=== PATIENT | male | born 1945 | race Caucasian/White ===

== ENCOUNTER → 2016-08-18 | Day surgery (SDC) | payer MEDICARE, BC ==
[~2016-08-18] VITALS: Ht 170.2 cm; Wt 104.4 kg
[~2016-08-18] MED LIST: ASPIRIN EC81 MG PO; COZAAR50 MG PO; CPAP INH; FLONASE 50 MCG/16 GM NOSE; PRILOSEC20 MG PO; TYLENOL EXTRA500 MG PO; VITAMIN D35000 UNIT PO
== END | disposition disaster alternative care site (69) ==
LOC: GPOC 08-17 14:00 → GEND 08:27
PROC: 0DB68ZX Excision of Stomach, Via Natural or Artificial Opening Endoscopic, Diagnostic (ICD-10-PCS; principal; 2016-08-18)
DX: K29.50 Unspecified chronic gastritis without bleeding (principal); K44.9 Diaphragmatic hernia without obstruction or gangrene; K31.89 Other diseases of stomach and duodenum; Z88.0 Allergy status to penicillin; Z88.8 Allergy status to other drugs, medicaments and biological substances; Z87.891 Personal history of nicotine dependence; Z90.49 Acquired absence of other specified parts of digestive tract; Z98.41 Cataract extraction status, right eye; Z98.42 Cataract extraction status, left eye; Z79.899 Other long term (current) drug therapy; Z98.890 Other specified postprocedural states
CPT/HCPCS: J2001; J7030